=== PATIENT | male | born 1955 | race Caucasian/White ===

== ENCOUNTER 2020-06-10 03:27 | Inpatient (IN) | payer OTHER ==
[~2020-06-10] VITALS: Ht 180.3 cm; Wt 75.3 kg
[2020-06-10 03:39] VITALS: BP 156/78
[2020-06-10] MEDS ORDERED: ZOLOFT50 M1 PO (04:17)
[2020-06-10] MEDS ORDERED: HUMALOG100 UNIT/1 SUBQ (04:18)
[2020-06-10] MEDS ORDERED: AMLODIPINE BESY10 MG PO (04:19)
[2020-06-10] MEDS ORDERED: REMERON15 M2 PO (04:19)
[2020-06-10] MEDS ORDERED: ASA81BEC PO (04:19)
[2020-06-10] MEDS ORDERED: LIPITOR40 MG PO (04:20)
[2020-06-10] MEDS ORDERED: CARVEDILOL12.5 MG PO (04:21)
[2020-06-10] MEDS ORDERED: VITAMIN D350 MC3 PO (04:23)
[2020-06-10] MEDS ORDERED: VITAMIN B-121000 MC2 PO (04:23)
[2020-06-10] MEDS ORDERED: HYDROCHLOROTHIA25 M2 PO (04:24)
[2020-06-10] MEDS ORDERED: LANTUS SUBQ (04:25)
[2020-06-10] MEDS ORDERED: MELATONIN5 M1 PO (04:26)
[2020-06-10] MEDS ORDERED: COZAAR100 MG PO (04:26)
[2020-06-10] MEDS ORDERED: OZEMPIC1 MG/0.75 SUBQ (04:28)
[2020-06-10] MEDS ORDERED: FLOMAX0.4 MG PO (04:29)
--- NOTE | 2020-06-10 04:58 | NUR ---
Patient admitted from [facility] ED to room 522A under the care of Dr. Kumari. Arrived via gurney with EMS. Patient current lives with his brother in their own home. Information was obtained from [facility], brother and medical records from . Patient's brother had taken patient to [facility] on 06/03/20 and was admitted for medical stay for dx of AMS. Discharged from on 06/07/20. Appears that patient was started on Zoloft during the admission for the diagnosis of major depressive disorder. Per patients brother, patient has been having disorganized behaviors, poor appetite, poor sleep, tried to jump out of moving car, engaging in dangerous behaviors, not taking medications as prescribed, delusional in thinking their dog was when it was not. Patient originally alert and oriented x1 when presenting to the ED on 06/09/20. Patient was anxious and required Ativan 1mg PO. Patient reassessed around 0100 on 06/10/20 by socially responsible investment adviser. Patient alert and oriented x2 at that time, calm and cooperative. Patient arrived to the unit and presented with suspicious/paranoid affect. Impulsive behaviors, appears anxious and easily agitated. Patient has a hearing aide to the right ear but had a lot of trouble hearing nurse speak. Patient signed consent to treat without issue. Patient alert and oriented x3 upon admission. Patient able to state it was the "beginning of June" and that he is at "[facility]". Patient denies SI/HI/AH/VH. Patient reports that he has had trouble with his memory recently. Denies pain and discomfort. Patient did bring a package of hearing aide batteries from home. Patient became agitated when nurse attempted to assist with hearing aide upon arrival. Patient had trouble focusing and following one step directions. Patient denies depression and anxiety. Patient incontinent of bladder and is wearing a brief for protection. Patient's brother stated that patient is primarily continent of bowel and bladder. Patient required min assist x1 with dressing but was able to complete all other ADLs independently. Patient ambulating with steady gait and good balance. No other previous falls reported. VIKTORIA Yi, notified of new admission. Orders obtained for sliding scale insulin and to monitor blood sugars ACHS. All other admission orders obtained from VIKTORIA Monterroso on behalf of Dr. Kumrai. Patient does report a weight loss of 40 pounds in 1 year. Unknown of the accuracy of information provided. Will place dietary consult. Patient assisted to bed after completion of assessment and was able to fall asleep without difficulty. Resting quietly at this time. Patient brother does report that patient was very social and out of the home most days before the pandemic started. Reports that patient had to become more isolative in the home which caused significant mental health decline. In January, patient was able to complete chores and run errands independently without issue.
[2020-06-10 06:34] LABS: CREATININE 1.8 mg/dL (0.7-1.3)
[2020-06-10 07:43] VITALS: BP 158/60
--- NOTE | 2020-06-10 10:41 | NUR ---
0700 ASSUMED CARE OF PATIENT, PATIENT LAYING IN BED AT THAT TIME. 0800 BARREL RIBS SOLDERER TO ROOM, ASKED PATIENT IF HE WANTED TO EAT. PATIENT TO DAYROOM FOR BREAKFAST. PATIENT [place], BATTERIES CHECKED AND WORKING. PATIENT DENIES PAIN, DENIES NEEDS. MEDICATION TAKEN WHOLE WITHOUT DIFFICULTY. PATIENT ASKS TO GO BACK TO ROOM TO LAY DOWN, BARREL RIBS SOLDERER ASKS PATIENT TO SIT IN DAYROOM AND WATCH TV FOR A BIT. PATIENT SITS WITH OTHERS COMMUNICATING WELL.
--- NOTE | 2020-06-10 11:09 | NUR ---
BLADDER SCAN USED TO CHECK FOR RESIDUAL URINE PER DR YEN REQUEST. BLADDER SCAN WITH 8 mL OF URINE NOTED PER SCAN. PATIENT STATES NO DIFFICULTY URINATING. PATIENT STATES HAS NOT HAD BM IN TWO WEEKS. WILL NOTIFY DR YEN. PATIENT IS CONFUSED AND SHUNGNAK. CASH MANAGEMENT ASSOCIATE HAD TO ASK MULTIPLE TIME BEFORE PATIENT UNDERSTOOD WHAT WAS ASKED. PATIENT RESTING IN BED AWAKE AT THIS TIME.
[2020-06-10 19:30] VITALS: BP 120/59
[2020-06-10 20:30] VITALS: BP 120/59
--- NOTE | 2020-06-10 23:21 | NUR ---
PATIENT HAS BEEN IN HIS BED ALL NIGHT. HE HAS HEARING AID THAT IS WORKING IN HIS RIGHT EAR BUT IS STILL [place]. PATIENT DENIES PAIN, SI/HI/AVH. HE STATES HE THINKS HE LEFT HIS BELONGINGS AT [facility] LAST NIGHT. HE IS CONCERNED ABOUT HIS WALLET AND CLOTHES. WALLET WAS SENT TO SECURITY HERE. SOME OF HIS CLOTHES WERE FOUND HERE. PATIENT STATES HE IS MISSING A BLACK SHIRT AND JEANS. PATIENT IS A/0 WITH FLAT EFFECT AND BLAMES HIMSELF FOR HIS BROTHER ADMITTING HIM TO THE HOSPITAL. HE STATES HE SHOULD'VE TRIED TO ACT BETTER AT HOME SO HIS BROTHER WOULDN'T HAVE WORRIED THAT THERE WAS SOMETHING WRONG WITH HIM. HE HAS BEEN CALM, QUIET AND ISOLATIVE TONIGHT. HE DID HAVE AN SNACK AND HE DID ASK WHAT MEDS HE WAS TAKING AT . HE IS A/0X3-4. CONTINUING TO MONITOR.
[2020-06-11 07:25] VITALS: BP 101/70
--- NOTE | 2020-06-11 09:05 | NUR ---
0700 ASSUMED CARE OF PATIENT, PATIENT IN BED AT THAT TIME. 0750 PATIENT TO DAYROOM FOR BREAKFAST. PATIENT SITS WITH OTHER PATIENTS AND COMMUNICATES WELL WITH OTHERS. 0815 MEDICATIONS GIVEN WHOLE WITHOUT DIFFICULTY. PATIENT DENIES NEEDS, NO C/O PAIN. 0900 PATIENT ATTENDING GROUP.
[2020-06-11 19:57] VITALS: BP 148/63
[2020-06-11 20:30] VITALS: BP 148/63
--- NOTE | 2020-06-12 00:12 | NUR ---
PATIENT HAS STAYED IN HIS ROOM MOST OF NIGHT. HE DID COME OUT FOR HS SNACK OF ICECREAM. HIS GLUCOSE WAS 88. PATIENT HAS BEEN VOIDING URINE WELL BUT STATES THAT HE HAS DISCOMFORT OVER HIS KIDNEYS. HE CANNOT RECALL WHEN HE HAD HIS LAST BM BUT STATES IT'S BEEN SEVERAL DAYS. HE HAS INCREASED HIS WATER INTAKE. NEW ORDER RECEIVED FOR DULCOLAX SUPPOSITORY DAILY PRN. PATIENT WANTED TO TRY THE MOM TONIGHT AND WILL SEE IF HE NEEDS SUPPOSITORY IN THE MORNING. PATIENT DENIES SI/HI/AVH. HE HAS BEEN MORE ALERT AND ACTIVE TONIGHT. PATIENT STATES HE IS ABLE TO SLEEP WELL BUT KEEPS GETTING UP TO TRY AND HAVE BM. SUGGESTED HE GO BACK TO BED AND LET THE MOM WORK IT'S WAY THRU AND TRY IN THE MORNING. PATIENT AGREED. PATIENT IS BACK IN BED AND SLEEPING AT THIS TIME. NO BEHAVIORS. APPEARS LESS SAD TONIGHT.
[2020-06-12 07:31] VITALS: BP 129/81
[2020-06-12 08:30] VITALS: BP 129/81
--- NOTE | 2020-06-12 08:32 | NUR ---
PT SITTING OUT IN DINING ROOM. PT SEEMS ANXIOUS, HANDS ARE SHAKING, AND WORRIED ABOUT THE GLUCERNA SHAKE IF IT WILL MAKE HIS BS GO UP. PT TOOK MEDS WITHOUT ANY ISSUES. PT UP WITH STAND-BY ASSIST.
--- NOTE | 2020-06-12 08:37 | NUR ---
ADM BISACODYL 5MG PO X1 FOR COMPLAINS OF CONSTIPATION. PT STATED ITS BEEN A WHILE FOR A BM.
[2020-06-12 09:46] LABS: URINE BILIRUBIN NEGATIVE (Negative); URINE BLOOD NEGATIVE (Negative); URINE CLARITY CLEAR; URINE COLOR YELLOW; URINE GLUCOSE-RANDOM* NEGATIVE (Negative); URINE KETONES NEGATIVE (Negative); URINE LEUKOCYTES-REFLEX NEGATIVE (Negative); URINE NITRITE-REFLEX NEGATIVE (Negative); URINE PROTEIN (DIPSTICK) NEGATIVE (Negative)
--- NOTE | 2020-06-12 14:25 | NUR ---
PT WORRIED ABOUT BLOOD SUGAR IS LOW. CHECKED AND SUGAR IS 132. PT REFUSED A SNACK. PT ALSO STATED HE HAS SOME CHEST TIGHTNESS ACROSS CHEST OF 5 ON 1-10 SCALE. VS TAKEN 130/83, 84, 99% 97.2.
[2020-06-12 14:30] VITALS: BP 130/83
--- NOTE | 2020-06-12 14:44 | NUR ---
LAB HERE TO DRAW ENZYMES. PT DENIES ANY ANXIETY AT THIS TIME.
[2020-06-12 14:58] LABS: HEMATOCRIT 37.8 % (42.0-52.0); HEMOGLOBIN 12.8 gm/dL (14.0-18.0); MCH 30.3 pg (26.0-34.0); MCV 89.1 fL (80.0-100.0); RBC 4.25 mil/uL (4.50-6.00); RDW 14.3 % (10.5-14.5); WBC 7.9 thou/uL (4.0-11.0)
--- NOTE | 2020-06-12 15:57 | EKG ---
[facility] [place] [address] ELECTROCARDIOGRAM REPORT Name: TRA BROOKSIN Jack Room #: [facility] ADM IN M.R.#: [id number] Admission: 06/10/20 Attend Phys: Yoni Kumari DO Discharge: Date of : 51 Report #: [id number] THIS REPORT FOR: cc: JAXSON - No family physician/PCP FAM - No family physician/PCP Nicola Whitney MD ~ THIS REPORT FOR: //name// [facility] Test Date: 2020-06-12 Test Time: 15:13:29 Pat Name: WANDA BROOKS Department: Room: [facility] Gender: M Griddle Cook: Guillermo DARNELL : 1955 Requested By: Yoni Kumari Order Number: [id number] MD: Nicola Whitney Measurements Intervals [place] Rate: 71 P: 72 ID: [id number] QRS: 51 QRSD: 80 T: 60 QT: 391 QTc: 425 Interpretive Statements Sinus rhythm Baseline wander in lead(s) V3 No previous ECG available for comparison Electronically Signed On 06-12-2020 15:57:49 CDT by Nicola Whitney [email or web address] <ELECTRONICALLY SIGNED> By: Nicola Whitney MD 06/12/20 1557 1513 1513 Nicola Whitney MD /[facility]
[2020-06-12 16:14] LABS: TSH 1.883 uIU/mL (0.358-3.740)
--- NOTE | 2020-06-12 17:10 | NUR ---
PT STATED CHEST PRESSURE IS GONE. PT BLOOD SUGAR DID DROP TO 85.
--- NOTE | 2020-06-12 17:44 | NUR ---
PT STATED HE HAS HAD X2 BM TODAY.
[2020-06-12 20:07] VITALS: BP 122/68
[2020-06-12 20:30] VITALS: BP 122/68
--- NOTE | 2020-06-13 02:06 | NUR ---
PATIENT WAS IN HIS ROOM IN BED WHEN I CAME ON SHIFT AT 190. PATIENT AND DAY NURSE STATE THAT HE HAD 2 LARGE BM'S THAT WERE ALMOST DIARHEA FORM. PATIENT IS ANXIOUS TONIGHT. HE STATES HE IS CONCERNED ABOUT HOW HE IS GOING TO PAY FOR THIS HOSPITAL VISIT. HE STATES THAT HE DOESN'T THINK HE WILL BE ABLE TO GO HOME SINCE HE WAS LIVING ALONE AND HIS BROTHER HAS BEEN LIVING WITH FRIENDS. HE DOESN'T KNOW WHERE HE WILL GO IF THE DR DOESN'T LET HIM GO HOME. HE STATES HE WAS HAVING A DIFFICULT TIME DOING THE COGNITIVE TESTING WITH DR NAYAK. HE STATES HE DOESN'T THINK HE DID WELL. CONVERSED WITH PATIENT AND TRIED TO CONSOLE HIM AND CALM HIS FEARS. PATIENT GIVEN 12.5MG SEROQUEL PO AT 2034. DR NOTIFIED OF PT ANXIETY AND NEW ORDER FOR SEROQUEL 50MG PRN RECIEVED AND GIVEN AROUND 2139. PATIENT HAS BEEN SLEEPING MOST OF NIGHT EXCEPT TO GET UP TO USE THE BATHROOM. HE TOOK HIS HS MEDS WHOLE WITH WATER AND STOOL LAXATIVES WERE HELD. CONTINUING TO MONITOR. PATIENT DENIES PAIN, SI/HI/AVH. HE IS A/0X3-4 AND WORRIES AND OBSESSES OVER HIS PROBLEMS. PATIENT IS COOPERATIVE. HE IS [place] AND HAS HEARING AID IN RIGHT EAR. ROUTINE ROUNDS TO ASSESS STATUS AND SAFETY OF PATIENT.
[2020-06-13 06:33] LABS: HEMATOCRIT 34.6 % (42.0-52.0); MCH 30.8 pg (26.0-34.0); MCHC 34.8 g/dL (28.0-37.0); MCV 88.7 fL (80.0-100.0); RBC 3.9 mil/uL (4.50-6.00); RDW 14.1 % (10.5-14.5); WBC 6.3 thou/uL (4.0-11.0)
[2020-06-13 06:54] LABS: CREATININE 1.7 mg/dL (0.7-1.3); MAGNESIUM 1.5 mg/dL (1.8-2.4); POTASSIUM 3.9 mmol/L (3.5-5.1)
[2020-06-13 07:53] VITALS: BP 94/56
--- NOTE | 2020-06-13 10:55 | NUR ---
Assumed care 0700. Sitting at breakfast at first encounter, self feeding after set up. Does not verbally interact with table mate. Pleasant, medication compliant. No SI/HI/AH/VH.
--- NOTE | 2020-06-13 11:04 | NUR ---
Note IM B12 had been scanned, pt. wanted it later as he was eating then declined it. Later RN saw the order to DC the med and later med was listed as refused.
--- NOTE | 2020-06-13 12:03 | NUR ---
CAMILA received notice from nursing that pt's brother Michael was downstairs to sign DPOA documents. CAMILA went to pt's room and asked him if it was ok for SW to go downstairs and talk to him. He gave SW permission to do so. CAMILA team went downstairs and met with pt's brother and neighbor. CAMILA provided education on DPOA docs. Michael explained he is afraid that pt is not cognitively sound to make his own decisions. CAMILA explained if that is the case then it is too late to sign DPOA docs and therefore pt may need a guardian. He agreed. He explained that he had been talking to docs at [facility], where pt was before [facility] unit, and then suddenly the staff stopped talking. They did not even tell him that pt transferred to [facility] unit. CAMILA explained that since pt is his own person, he can dictate who he wants to know his info so likely he told the former staff that he did not want Michael to have his info. It was relayed to CAMILA yesterday that [facility] reported pt revoked his consent for his family to know information. CAMILA did discuss with Michael that Dr. Kumari would like a family meeting. CAMILA and Michael scheduled the meeting for 11 am on 06/14. Michael's phone number is [phone]. CAMILA relayed the msg to pt to contact his brother and give his 4 digit code should he choose too. CAMILA showed pt where he could find his 4 digit code on his wrist.
--- NOTE | 2020-06-13 18:26 | NUR ---
Received Seroquel for anxiety this evening. He was visibly shaking, with racing thoughts. He has worries he can't describe. wanted to lie down after dinner which he did. said he didn't eat much for dinner. Informed pt. of needed stool specimen and to let staff know when he was going to have BM so they could get supplies for collection.
[2020-06-13 19:20] VITALS: BP 125/72
[2020-06-13 19:21] VITALS: BP 125/72
--- NOTE | 2020-06-13 19:30 | NUR ---
Care of patient assumed at 1915. Patient is in bed sleeping. Per LOW PRESSURE BOILER TENDER, patient has a temp of 100.6. Patient is assessed. Difficult to arouse. HS, LS, BS normal. RE=344. Drowsy, bordering on lethargic. A little disoriented as he was forced awake. Vitals retaken and are WNL. Patient is compliant with HS meds. Continues to lay in bed but is seen to be awake through the 1 o'clock hour.
[2020-06-14 06:04] LABS: HEMATOCRIT 33.6 % (42.0-52.0); HEMOGLOBIN 11.8 gm/dL (14.0-18.0); MCH 30.8 pg (26.0-34.0); MCHC 35.3 g/dL (28.0-37.0); MCV 87.4 fL (80.0-100.0); RBC 3.85 mil/uL (4.50-6.00); RDW 14.3 % (10.5-14.5); WBC 6.4 thou/uL (4.0-11.0)
[2020-06-14 06:23] LABS: CALCIUM 9.4 mg/dL (8.5-10.1); CREATININE 1.7 mg/dL (0.7-1.3); MAGNESIUM 1.6 mg/dL (1.8-2.4); POTASSIUM 3.8 mmol/L (3.5-5.1)
[2020-06-14 07:17] VITALS: BP 118/67
--- NOTE | 2020-06-14 10:11 | NUR ---
Staggering gait X 2 this AM when first awake, regular, steady gait later in morning. Alert and orientated X4. Calm and cooperative. Anxious about stool this AM and about hospital bill. Forgetful at times. Denies SI/HI. Breath sounds clear. Reg HR auscultated. Color pink with brisk capillary refill and palpable peripheral pulses. No edema noted. Incontinent of small amt concentrated urine per brief with smear of brown stool. Had additional small, formed, soft, brown stool. Compliant with meds, participating in group.
--- NOTE | 2020-06-14 12:54 | NUR ---
CAMILA contacted Michael to discuss a plan of action for discharge. He said that he spoke with Dr. Kumari today who told him that pt is in need of 24 hour care and supports. Michael said that he and his brother Haile plan to care for his needs; Haile will be over pt's finances and Michael will be his caregiver. He said all of pt's brother are retired. CAMILA suggested placement and Michael said he would never place him in a nursing facility. They also do not have the funds. He would like pt screened for Medicaid. [place] [facility] asking for a return call. CAMILA team will continue to follow pt during his stay on this unit.
[2020-06-14 20:10] VITALS: BP 112/70
--- NOTE | 2020-06-15 05:48 | NUR ---
Assumed care of pt @ 1900. Pt calm et cooperative this shift with moderate confusion. Took medications whole without difficulty. Ambulates the halls ad tolu with steady gait. VSWNL. Health assessment with no abnormalities noted at present time. Pt denies SI/HI at present time. Socialized in dayroom with peers until HS. Currently resting in bed with eyes closed. Will continue to monitor per protocol.
[2020-06-15 07:40] VITALS: BP 138/77
[2020-06-15 10:04] VITALS: BP 138/77
--- NOTE | 2020-06-15 11:02 | NUR ---
RT Progress Note- Moe is present in the milieu and recreation groups. His level of orientation/confusion limits his ability to follow along and he requires reinstruction. He does not display any out of the ordinary behaviors during interactions.
--- NOTE | 2020-06-15 13:13 | NUR ---
CAMILA contacted Michael at [phone] to arrange d/c for Thursday. Michael said to CAMILA that his brother Haile told him that pt now has a "degenerative disease," and so he cannot care for him. CAMILA reminded him that she explained that to him yesterday to which Michael responded that he did not want to put pt in placement. CAMILA also explained that placement is not likely for pt due to him not having a DPOA or a guardian which most facilities require. Pt also likely does not have the ability to sign himself in. He said that he still doesn't have the ability to take care of pt. CAMILA explained this is what she has been trying to work with him on since shortly after pt arrived. Michael asked CAMILA to contact his brother Haile at [phone]. CAMILA contacted Haile who said that his brother Michael "doesn't have a lick of sense," and is almost as confused as Moe although he does not suffer from dementia. He said that neither Michael nor he has the capability to care for pt. CAMILA advised that he reach out to an assistant district attorney and discuss guardianship because that is probably the only way pt can get admitted into placement. CAMILA also reiterated that the option of pt being able to remain on the unit until guardianship goes through is not likely. Haile said he will call the assistant district attorney and then call CAMILA back. CAMILA team will continue to follow pt during his stay on this unit.
--- NOTE | 2020-06-15 15:02 | NUR ---
PATIENT WAS UP, AND OUT, SITTING IN DAY ROOM WHEN CARE ASSUMED. PATIENT IS ALERT, AND ORIENTED X 1, HE IS FORGETFUL, AND PLEASANTLY CONFUSED. PATIENT AMBULATES WITH SLOW STEADY GAIT. PATIENT TOOK ALL MEDICATION WHOLE WITHOUT DIFFICULTY. HE IS EATING MEALS, AND DRINKING FLID WELL. PATIENT DENIES SUIIDAL/HOMICIDAL IDEATION. PATIENT IS NOT ABLE TO APPROPRIATELY RESPOND TO FURTHER ASSESSMENT QUESTIONS DUE TO COGNITIVE IMPAIRMENT. PATIENT IS CALM, COOPERATIVE WITH CARE. NO AGGRESSION OR AGITATION NOTED, PATIENT PARTICIPATES IN GROUP THERAPY. NO SIGN OF ACUTE DISTRESS NOTED AT THIS TIME, WILL MONITOR FOR SAFETY.
[2020-06-15 20:22] VITALS: BP 122/51
--- NOTE | 2020-06-16 05:06 | NUR ---
Assumed care of pt @ 1900. Pt calm et cooperative with pleasant demeanor this shift. Took medications whole without difficulty. Ambulates the halls ad tolu with steady gait. VSWNL. Health assessment with no abnormalities noted at present time. Socialized in dayroom with peers until HS. Currently resting in bed with eyes closed. Will continue to monitor per protocol.
[2020-06-16 07:05] VITALS: BP 174/74
--- NOTE | 2020-06-16 12:56 | NUR ---
Alert and orientated X3, unable to give time. Denies SI/HI. Ambulates with regular, steady gait. Quiet most of the time but does interact appropriately. Breath sounds clear t/o. Reg HR auscultated. Color pink with brisk capillary refill and palpable peripheral pulses. BP 174/74. Will recheck this afternoon. Incontinent of small amt yellow urine. Bladder scan revealed 374 cc, 200 cc post void. States he had a BM yesterday. Active bowel sounds over soft, flat abdomen. Area between buttocks red and excoritated, cleaned and ointment applied.
[2020-06-16 13:24] VITALS: BP 108/58
[2020-06-16 20:25] VITALS: BP 122/48
--- NOTE | 2020-06-17 05:00 | NUR ---
Assumed care of pt @ 1900. Pt calm et cooperated this shift. Took medication whole without difficulty. Ambulates the halls ad tolu with steady gait. Socialized with peers in dayroom until HS. VSWNL. Health assessment with no abnormalities noted at present time. Denies SI/HI at present time. Currently resting in bed with eyes closed. Will continue to monitor per protocol.
[2020-06-17 06:23] LABS: HEMATOCRIT 33.9 % (42.0-52.0); HEMOGLOBIN 11.9 gm/dL (14.0-18.0); MCH 31.2 pg (26.0-34.0); MCHC 35.2 g/dL (28.0-37.0); MCV 88.7 fL (80.0-100.0); RBC 3.83 mil/uL (4.50-6.00); RDW 14.3 % (10.5-14.5); WBC 6.9 thou/uL (4.0-11.0)
[2020-06-17 06:45] LABS: CALCIUM 9.3 mg/dL (8.5-10.1); CREATININE 1.7 mg/dL (0.7-1.3); POTASSIUM 4.6 mmol/L (3.5-5.1)
[2020-06-17 07:18] LABS: % SATURATION 24 % (20-39); IRON 48 ug/dL (65-175); TIBC 199 ug/dL (250-450)
[2020-06-17 09:18] VITALS: BP 156/73
--- NOTE | 2020-06-17 10:00 | NUR ---
Assumed care 0700. c/o dizziness this AM. VS rechecked 0745=T=99.4, p=86, r=16, gm=459/80. Table close at bedside and instructed to use call de la rosa when he wanted to get up. He was assisted up from bed to void in bathroom and voided a large amount in toilet. He self fed breakfast after tray was set up for him. No goals or concerns. He does not initiate conversation with peers, keeps to himself when in dayroom. Denies SI/HI/AH/VH.
--- NOTE | 2020-06-17 18:49 | NUR ---
Prior to dinner it was reported that he was tremulous. Ac dinner TCQK=758. Orthostatic BP's=lying left aue=913/80, p=64, zrmktnp=949/80, p=68, uktjjezc=922/60, p=68. He required no Insulin per parameters. He complained of having difficulty urinating. At dinner was given 2% milk and apple juice in addition to his meal (he does not always eat the entire meal.) No further c/o's of head spinning like this AM. Steady gait. Bladder scanned pre axbs=635 ml. After voiding Post scan=0 ml.
[2020-06-17 20:31] VITALS: BP 144/71
[2020-06-17 23:15] VITALS: BP 144/71
--- NOTE | 2020-06-18 02:21 | NUR ---
Assumed care of patient this pm shift. Patient in his room during assessment. Patient is hard of hearing. Patient denies pain. Patient denies hi/si. Patients affect is blunted. Patient is continent of bowel and bladder. Patient is not a falls risk. Patient is alert and oriented to self. Patients assessment shows no signs of acute distress. Patient takes medications whole with thin fluids. Patient did not voice any concerns at this time. We will continue to monitor per hospital protocol.
[2020-06-18 07:32] VITALS: BP 159/69
--- NOTE | 2020-06-18 08:12 | NUR ---
PT IN DINING ROOM. PT NEEDED ENCOURAGED TO SIT AT TABLE WHEN BREAKFAST TRAYS ARRIVED. PT TOOK MEDS WITHOUT ANY ISSUES. PT IS WITHDRAWN AND NOT SOCIAL THIS AM. PT UP WITH STEADY GAIT.
[2020-06-18 08:20] VITALS: BP 159/69
--- NOTE | 2020-06-18 11:24 | NUR ---
CAMILA spoke and Dr. Kumari spoke with Haile concering d/c plans. He said that his has contacted a facility in [facility] regarding pt; according to him this facility can take pt's without DPOA or guardianship docs. He will call CAMILA this afternoon with an update concerning that facility. He is also to talk with Michael and come up with a plan for a safe d/c for pt. CAMILA team will continue to follow pt during his stay on this unit.
[2020-06-18 16:12] VITALS: BP 110/60
--- NOTE | 2020-06-18 16:12 | NUR ---
PT SITTING IN DINING ROOM AND COMPLAINED OF SOB. PT VS TAKEN. OXYGEN SAT 100%. PT DIDN'T APPEAR IN ANY DISTRESS. RESP RATE 20. PT WRINGING HANDS.
[2020-06-18 19:55] VITALS: BP 154/77
--- NOTE | 2020-06-18 23:55 | NUR ---
Care of patient assumed at 1915. Patient is laying quietly in his room. Pleasant and cooperative with assessment. A/O x 3, confused about date and time. HS, LS, BS normal. Denies pain. Denies SI/HI. Compliant with HS meds. Remains in bed and is sleeping at 2130.
[2020-06-19 07:53] VITALS: BP 111/76
[2020-06-19 08:30] VITALS: BP 111/76
--- NOTE | 2020-06-19 08:46 | NUR ---
PT SITTING IN DINING ROOM. PT DENIES ANY PAIN. PT ORIENTED TO SELF. PT STILL HAS SOME CONFUSION. PT TAKING MEDS WHOLE WITHOUT ANY ISSUES. PT LUNGS CLEAR.
[2020-06-19 19:48] VITALS: BP 103/64
--- NOTE | 2020-06-20 01:13 | NUR ---
Pt was sitting amongst other pts in the dayroom. Pt alert and oriented. Pt was calm and cooperative with assessment. Pt reported having some anxiety and depression. Denies SI/HI/AVH. Pt took meds whole. Pt got insulin per SS. Pt denies pain this shift. Pt now in his room, sleeping. Will continue to monitor.
[2020-06-20 07:52] VITALS: BP 93/65
--- NOTE | 2020-06-20 16:15 | NUR ---
Assumed care 0700. At breakfast patient was not feeding himself. He was tremulous, stared out into space, at times not responding to what staff was saying to him (is TEJON). Normally he is capable of feeding himself and does so. His AM FSBS=92--he did not qualify for SS Insulin and nurse held the Glargine Insulin. Nurse prepared/and fed patient his breakfast. He eventually became more responsive talking to nurse. At lunch and dinner KVQD=514 each time and was given appropriate insulin. Patient denied pain, still has slight tremor of hands. He rarely initiates conversation with peers. He was seen by the Hematology Nurse Educator. Late in the shift patient reported he wasn't right in the head, didn't know where he was, nor what type of building we were in. Was reoriented to place and purpose. Denied SI/HI/AH/VH. Had no concerns nor goals for the day.
[2020-06-20 19:29] VITALS: BP 114/73
--- NOTE | 2020-06-21 02:37 | NUR ---
Care of patient assumed at 1915. Patient is sitting on the couch in the day room. Calm and cooperative with assessment. A/O x 2. Confused as to date, time, and situation. Says he feels terrible, but cannot elaborate. Denies physical distress. Seems upset about his confusion. Unable to find his room. Cooperative with HS meds. Receives MOM as he reports he has not had a BM since 06/15/20. Escorted to his room and is quickly asleep.
--- NOTE | 2020-06-21 08:52 | HC ---
[facility] [place] [address] CONSULTATION Name: WANDA BROOKS Room #: 522A-A ADM IN M.R.#: [id number] Admission: 06/10/20 Attend Phys: Yoni Kumari, Discharge: Date of : 51 Report #: [id number] THIS REPORT FOR: cc: JAXSON - Chanelle family physician/PCP JAXSON - Chanelle family physician/PCP Sage Victor MD ~ CC: Yoni PURI physician/PCP DATE OF SERVICE: 06/20/2020 ENDOCRINE CONSULTATION NOTE CONSULTING PHYSICIAN: Dr. Kumari. REASON FOR CONSULTATION: Type 2 diabetes mellitus. HISTORY OF PRESENT ILLNESS: This is a 64-year-old male patient whose medical background is significant for multiple medical issues including type 2 diabetes mellitus, hypertension, hyperlipidemia as well as chronic kidney disease, who was admitted to the psych unit due to issues involving behavioral changes, confusion, inability to care for self, and question of dementia. The patient was actually able to provide a fairly reasonable history and explains that he has been a diabetic for about 15 years. He notes that his most recent antidiabetic regimen consisted of Lantus insulin 15 units daily in addition to Humalog insulin 6 units with meals. He describes somewhat variable blood glucose values, but indicates that most were in the low to high 100 mg/dL range with limited issues pertaining to hypoglycemia. He could not confirm whether or not he had issues with diabetic nephropathy, but he denied having diabetic retinopathy. He does have intermittent issues with diabetic neuropathy that he feels are mild and said that he can easily work through that. He is not aware of issues around the theme of cardiac disease. The patient is also hyperlipidemic and has hypertension. REVIEW OF SYSTEMS: CONSTITUTIONAL: Fatigue, tiredness, but not significant body weight changes, fever or chills. HEENT: Negative for sore throat, sinus pain or ear drainage. PULMONARY: Occasional shortness of breath and cough, but not hemoptysis. CARDIAC: No chest pain, palpitations, syncope or presyncope. GASTROINTESTINAL: Occasional abdominal discomfort and nausea, but not vomiting. NEUROLOGY: Baseline issues with peripheral diabetic neuropathy, but not seizure activity, loss of consciousness or severe frequent headaches. DERMATOLOGY: Negative for rash, ulceration or other major abnormalities. [facility] [address] [place] [address] CONSULTATION Name: WANDA BROOKS Jack Room #: 522A[facility] ..#: [id number] Admission: 06/10/20 Attend Phys: Yoni Kumari DO Discharge: Date of : 51 Report #: [id number] Otherwise, review of systems is noncontributory other than those mentioned in HPI. PAST MEDICAL HISTORY: 1. Type 2 diabetes mellitus. 2. Hypertension. 3. Hyperlipidemia. 4. CKD. 5. Vitamin B12 deficiency. 6. BPH. 7. History of urinary retention. 8. Dementia. CURRENT MEDICATIONS: Include Zoloft 50 mg daily, Humalog insulin 6 units with meals, Remeron 15 mg at bedtime, amlodipine 10 mg daily, aspirin 81 mg daily, atorvastatin 40 mg daily, carvedilol 12.5 mg b.i.d., vitamin D3 2000 units daily, hydrochlorothiazide 25 mg daily, Lantus insulin 10 units daily, losartan 100 mg daily, melatonin 5 mg at bedtime, Ozempic 0.25 mg weekly, Flomax 0.4 mg daily. ALLERGIES: No known drug allergies. FAMILY HISTORY: Noncontributory. SOCIAL HISTORY: The patient lives at home with his brother. He denies use of tobacco, alcohol or illicit drugs. He is single, but has 1 son. PHYSICAL EXAMINATION: GENERAL: Pleasant male patient who is not in apparent pain or distress. VITAL SIGNS: Blood pressure is 93/65 mmHg, heart rate is 87 beats per minute, respirations 20 per minute, temperature of 36.4 degrees Celsius. CONSTITUTIONAL: The patient is sitting upright, appears comfortable, not in apparent distress. HEENT: Anicteric sclerae. Intact extraocular motions. NECK: Supple, without JVD, carotid bruits or lymphadenopathy. I do not appreciate thyromegaly. CHEST: Noted for moderate air entry bilaterally with scattered rales. No wheeze or crackles. HEART: Regular rate and rhythm without murmurs or gallops. ABDOMEN: Soft, lax. No guarding. Active bowel sounds. EXTREMITIES: Lower extremity examination is negative for ankle edema, skin breaks or ulcerations. NEUROLOGIC: Awake, alert and oriented to time, place and person largely nonfocal. PSYCHIATRIC: Flat mood and affect, but overall pleasant, interactive. Attempts [facility] [address] [place] [address] CONSULTATION Name: BROOKSWANDA CAMPBELL Room #: 522A-A ADM IN M.R.#: [id number] Admission: 06/10/20 Attend Phys: Yoni Kumari DO Discharge: Date of : 51 Report #: [id number] to answer all my questions and thus so mostly appropriately. LABORATORY RESULTS: Blood glucose values were reviewed over his hospital stay and were noted for fluctuations in blood glucose values with ongoing just in the mid 90s and then as high as 246 mg/dL, but mostly in the high 100s mg/dL. Otherwise, sodium 142, potassium 4.6, chloride 105, CO2 of 32, anion gap 5, BUN 50, creatinine 1.7, calcium 9.3, magnesium 2.0. EGFR 41. Troponin negative. White blood count 6.9, hemoglobin 11.9, hematocrit 33.9, platelets 171. TSH 1.883. ASSESSMENT AND PLAN: 1. Type 2 diabetes mellitus. The patient obtains a picture of somewhat relatively controlled type 2 diabetes mellitus at home on a basal bolus regimen. During this hospital stay, the patient had some glycemic fluctuation, but mostly in the way of having hyperglycemia. It was noted that his blood glucose went as low as 97 mg/dL earlier today, which is in itself is not technically within the hypoglycemic range. The patient and I discussed the pathogenesis of type 2 diabetes mellitus and the importance of achieving and maintaining adequate glycemic control and preventing both severe hyperglycemia and severe hypoglycemia. Given his current outlook, I would like to add Tradjenta 5 mg daily to his existing Lantus regimen hoping to keep his control between 140-180 mg/dL on a more consistent basis. Blood glucose monitoring, will continue before meal and at bedtime. Furthermore, I would like to obtain a hemoglobin A1c to get a better assessment of his overall level of control prior to his admission here. 2. Hyperlipidemia. The patient is currently on atorvastatin therapy and tolerates it well, he is to continue with the same. 3. Hypertension. The patient is currently on losartan 25 mg daily and has had adequate blood pressure control, he is to continue with the same. I have reviewed the patient's clinical care notes, laboratory data, and other pertinent clinical information including his outside paper [facility] records for over 35 minutes in addition to my encounter time with him. I certainly appreciate this consultation by Dr. Kumari. <ELECTRONICALLY SIGNED> By: Sage Victor MD 06/21/20 0852 [id number] Sage Victor MD /nt
[2020-06-21 09:06] VITALS: BP 106/61
--- NOTE | 2020-06-21 11:43 | NUR ---
REFUSED ALL AM MEDICATIONS. REFUSED TO EAT ANY BREAKFAST-CANDY DECORATOR CONSULTED WHILE ROUNDING REGARDING NOT EATING AND BLOOD SUGARS-ORDERS RECEIVED TO ADMINISTER SS INSULIN AFTER MEALS ONLY IF PT EATS. BS THIS AM 146 AT LUNCH 143. NON-VERBAL WITH THIS RN STARING EYE CONTACT-AND WILL PUT HEAD IN HANDS AND LOWER HEAD TO LAP. DID SIT WITH PEERS AT BREAKFAST AND DURING GROUP ACTIVITY BUT DOES NOT PARTICIPATE AND DOES NOT RESPOND TO PEERS ATTEMPTS TO COAX HIM TO EAT. SKIN WARM AND DRY-VS STABLE-DOES NOT APPEAR TO BE IN PAIN-NO FACIAL GRIMACING WITH MOVEMENT ETC. RESPIRATIONS EVEN AND REGULAR.
--- NOTE | 2020-06-21 13:06 | NUR ---
CAMILA contacted [facility] , to ensure she received my email with the contact info for in home supports in their area provided by pt's insurance, and contact info for the [facility] referral for a guardianship supervisor area. She said she did receive the contact information. CAMILA contacted Michael and confirmed pt's discharge for 06/22/2020 @11am. CAMILA team will continue to follow pt during his stay on this unit.
[2020-06-21 20:33] VITALS: BP 124/64
--- NOTE | 2020-06-22 02:01 | NUR ---
Care of patient assumed at 1915. Patient is sitting in day room in a wheel chair. Per report, patient had not eating anything and hardly drank anything all day. Day shift nurse was concerned as he appeared unsteady and weak, hence the wheelchair. Patient is somnolent and whispers answers in short 1-2 word responses. States no BM since 06/15. Reports pressure in lower abdomen. MOM added to HS meds. HS faint, LS clear but diminished, BS active x 4. Compliant with HS meds ad lies down to sleep.
[2020-06-22 04:06] LABS: GLYCOHEMOGLOBIN (HGB A1C) 6.5 % (4.8-5.6)
[2020-06-22 05:39] LABS: CALCIUM 9.5 mg/dL (8.5-10.1); CREATININE 1.4 mg/dL (0.7-1.3)
[2020-06-22 08:00] VITALS: BP 92/54
--- NOTE | 2020-06-22 08:38 | NUR ---
PT SITTING IN DINING ROOM. PT HOLDING HANDS IN LAP. PT REFUSING MEDS AND NOT GIVING A REASON WHY HE IS REFUSING. PT DID ALLOW THIS CREDIT REFERENCE CLERK TO GIVE HIM INSULIN. ADM LANTUS 5MG SQ. PT DIDN'T EVEN DRINK HIS ENSURE. PT LUNGS CLEAR. PT DENIES ANY PAIN. NOT EATING BREAKFAST. PT ENCOURAGED BY NURSE AND PEERS TO EAT.
--- NOTE | 2020-06-22 09:05 | NUR ---
CAMILA received a call from Michael confirming that he will be at the hospital to pick pt up at 11 am. SW team will continue to follow pt during his stay on this unit.
[2020-06-22] MEDS ORDERED: IRON325 PO (10:53)
[2020-06-22] MEDS ORDERED: COZAAR 25 MG TA25 M1 PO (10:54)
[2020-06-22] MEDS ORDERED: REMERON 30 MG T30 M1 PO (10:55)
[2020-06-22] MEDS ORDERED: ZOLOFT100 MG PO (10:55)
[2020-06-22] MEDS ORDERED: MIRALAX17 GM PO (10:56)
[2020-06-22] MEDS ORDERED: SENNA-TIME S T1 EACH PO (10:56)
[2020-06-22] MEDS ORDERED: MAGOX 400400 MG PO (10:56)
[2020-06-22] MEDS ORDERED: TRADJENTA5 MG PO (10:57)
[2020-06-22 11:09] VITALS: BP 92/54
--- NOTE | 2020-06-22 11:10 | NUR ---
CAMILA D/C NOTE In tx team it was discussed that pt may qualify for hospice services. CAMILA provided a family friend Jeffry, who came to take pt home, with a hospice listing from Medicare.gov.
--- NOTE | 2020-06-22 11:30 | NUR ---
PT DISCHARGED TO HOME. PT LEFT VIA W/C TO BROTHER. PT OBTAINED HIS BELONGINGS IN LOCKER AND ALSO IN SECURITY. PT FAMILY SIGNED DISCHARGE PAPERS.
--- NOTE | 2020-06-23 15:34 | D ---
[facility] [place] [address] DISCHARGE SUMMARY Name: WANDA BROOKS Room #: 522A-A [facility] IN .R.#: [id number] Admission: 06/10/20 Attend Phys: Yoni Kumari DO Discharge: 06/22/20 Date of : 51 Report #: [id number] THIS REPORT FOR: cc: JAXSON - Chanelle family physician/PCP JAXSON - No family physician/PCP Yoni Kumari DO ~ THIS REPORT FOR: //name// CC: Yoni PURI physician/PCP DATE OF SERVICE: 06/22/2020 INPATIENT PSYCHIATRIC EVALUATION ATTENDING PHYSICIAN: Yoni Kumari DO EQUIP TECH AT THE TIME OF DISCHARGE: Monica Mathias MD DISCHARGE DIAGNOSES: Major neurocognitive disorder, most likely vascular dementia, but possibly multifactorial with behavioral disturbance, modest improvement. ADDITIONAL DIAGNOSES: Depression, clinical; failure to thrive. Other medical comorbidities include diabetes mellitus type 2, dysuria, benign prostatic hypertrophy, hypertension, and chronic kidney disease stage 3. DISCHARGE PLAN: Discharging to his brother, Michael's home. Prescription at this time, ferrous sulfate 325 mg p.o. b.i.d., Losartan 25 mg p.o. daily, mirtazapine 30 mg p.o. at bedtime, sertraline 100 mg p.o. daily, 30 days prescriptions were given for all of the above for depression, magnesium oxide 400 mg p.o. b.i.d. for supplementation, polyethylene glycol 17 g p.o. b.i.d. for constipation, hold if diarrhea , 2 senna tablets p.o. b.i.d., again hold if diarrhea, linagliptin which is Tradjenta 5 mg p.o. daily, insulin lispro 6 units subcutaneous with meals, aspirin 81 mg oral daily, atorvastatin 40 mg p.o. at bedtime, carvedilol 6.25 mg p.o. b.i.d., cholecalciferol 2000 International Units p.o. daily, cyanocobalamin 1000 mcg oral daily, insulin glargine 10 units subcutaneous daily, melatonin 5 mg p.o. at bedtime, tamsulosin 0.4 mg p.o. daily. Aftercare was challenging in this situation. Placement was recommended, but the brother is wanting to do this care at his home. Referral was made to [facility] as the patient is declining quickly. The patient should follow up with primary care physician. Information given on the [facility] [employer] and home [address] [address] DISCHARGE SUMMARY Name: WANDA BROOKS Room #: 522A-A [facility] IN M.R.#: [id number] Admission: 06/10/20 Attend Phys: Yoni Kumari DO Discharge: 06/22/20 Date of : 51 Report #: [id number] supports to his , Antoinette and PCP followup with primary care physician within 2 weeks. LABORATORY DATA: Of significance. Discharge CBC; white count 6.9, H and H 11.9 and 33.9, and platelet count 171. Chemistries; sodium 143, potassium 5.0, chloride 105, bicarbonate 30, anion gap 8, BUN 33, creatinine 1.4, estimated GFR 51, glucose 118, calcium 9.5. Blood sugars in the last 24 hours have ranged from 118-204; 204 is at the time of discharge. Urinalysis this admission was negative. IMAGING THIS ADMISSION: KUB was done on 06/12, which showed moderate constipation. Chest x-ray done on 06/12, which showed a normal chest. Microbiology this admission was negative for occult blood. There was some additional laboratories I did to workup his anemia. Vitamin B12 was greater than 6000. Vitamin D 43.4, ferritin was 5604, TIBC was 199, which is low. Iron was low at 48, so I started him on empiric 325 mg p.o. b.i.d. of ferrous sulfate. Hemoglobin A1c this admission was 6.5. We did consult wool hat forming machine tender, Dr. Victor due to some possible hyperglycemic episodes. Dr. Victor recommended 10 units daily of Lantus, continuing Tradjenta 5 mg p.o. daily, insulin sliding scale which for home would be a bit much, so I recommended continuing 6 units with meals as long as he is eating. REASON FOR ADMISSION: Back on 06/10 or so, the patient was admitted due to bizarre behaviors associated with his brother. We got him from [employer]. Apparently, the patient was not sleeping and reports of suicidal thinking, worsening depression, failure of outpatient treatment. The patient had a significant workup previously at [facility] with no specific conclusion on his dementia. HOSPITAL COURSE: The patient was admitted to Geriatric Psychiatry Unit. I elected to do a conservative course, increase his sertraline to 100 mg p.o. daily. We increased his mirtazapine to 30 mg p.o. daily, this was a concern about some fall risk and such with more antihistaminic doses. The patient stayed in good behavioral control. There was a diagnostic question coming out of his previous workups. Elected to consult Dr. Dilan Dupree, neuropsychologist. Findings were major neurocognitive disorder, unspecified, with anxiety, moderate severity, persistent depressive disorder. At the time of discharge, the patient was not suicidal or homicidal. Will step down to long-term care setting. Family elected to do care at home. PHYSICAL EXAMINATION: VITAL SIGNS: On the day of discharge, temperature 36.8, pulse 86, respirations 20, BP 92/54. MUSCULOSKELETAL: Normal gait and station. Pale appearing. [facility] [address] [place] [address] DISCHARGE SUMMARY Name: WANDA BROOKS Room #: 522A-A [facility] IN [facility]#: [id number] Admission: 06/10/20 Attend Phys: Yoni Kumari DO Discharge: 06/22/20 Date of : 51 Report #: [id number] MENTAL STATUS EXAMINATION: This is a well-developed, frail, ill-appearing male, appearing older than stated age. Attention limited. Concentration impaired. Speech intermittently mute. No psychomotor agitation, some psychomotor retardation. There was a tremulous noted. Mood and affect were constricted, dysphoric. Denied SI or HI. Denied auditory, visual, or tactile hallucinations. Memory noted to be impaired. Insight impaired. Judgment impaired. Fund of knowledge well below average. PROGNOSIS: For this patient is guarded to poor given progressive neurodegenerative illness, multiple hospital stays over the last couple of months unfortunately yielding this kind of prognosis. Hospice is encouraged to be entertained by his brothers. <ELECTRONICALLY SIGNED> By: Yoni Kumari DO 06/23/20 1534 2320 0529 Yoni Kumari, /nt
== END 2020-06-22 11:30 | disposition home or self-care (01) | DRG 881 ==
LOC: SBH
PROVIDERS: Internal Medicine; Nurse Practitioner Psychiatric/Mental Health; ADMIT Psychiatry & Neurology Psychiatry; ATTEND Psychiatry & Neurology Psychiatry
DX: F32.9 Major depressive disorder, single episode, unspecified (principal); F01.50 Vascular dementia, unspecified severity, without behavioral disturbance, psychotic disturbance, mood disturbance, and anxiety; N18.4 Chronic kidney disease, stage 4 (severe); F41.8 Other specified anxiety disorders; E78.5 Hyperlipidemia, unspecified; N40.0 Benign prostatic hyperplasia without lower urinary tract symptoms; K59.00 Constipation, unspecified; F29 Unspecified psychosis not due to a substance or known physiological condition; G47.00 Insomnia, unspecified; I95.9 Hypotension, unspecified; I12.9 Hypertensive chronic kidney disease with stage 1 through stage 4 chronic kidney disease, or unspecified chronic kidney disease; E53.8 Deficiency of other specified B group vitamins; Z79.82 Long term (current) use of aspirin; Z79.899 Other long term (current) drug therapy; Z82.49 Family history of ischemic heart disease and other diseases of the circulatory system; Z83.3 Family history of diabetes mellitus
CPT/HCPCS: 10880